=== PATIENT | male | born 1985 | race Caucasian/White ===

== ENCOUNTER 2023-08-08 09:31 | Emergency (ER) | payer OTHER ==
[2023-08-08] MEDS ORDERED: Ondansetron 4 MG Tab.DIS PO ONE (10:00)
[2023-08-08] MEDS ORDERED: Morphine 4 MG/ML Syringe IVPUSH ONE ×2 (10:00→11:05)
[2023-08-08] MEDS ORDERED: Lidocaine 1% 5 ML VIAL INJECT ONE (10:08)
[2023-08-08] MEDS ORDERED: Ketorolac 30 MG/ML SDV IVPUSH ONE (11:05)
[2023-08-08] MEDS ORDERED: Take Home: Acetaminophen/oxyCODONE 325-5 MG, 5 Tab Pack PO ONE (11:31)
== END 2023-08-08 11:44 | disposition home or self-care (01) ==
LOC: DL.ED 09:31
DX: S62.101A Fracture of unspecified carpal bone, right wrist, initial encounter for closed fracture (principal); F17.210 Nicotine dependence, cigarettes, uncomplicated; W11.XXXA Fall on and from ladder, initial encounter
CPT/HCPCS: 73100; 96374; 96375; 96376; 99283; A9270; J1885; J2270; J3490